=== PATIENT | female | born 2000 | race Caucasian/White ===

== ENCOUNTER 2023-09-15 10:57 | Day surgery (SDC) | payer BC ==
[~2023-09-15] VITALS: Ht 162.6 cm; Wt 72.6 kg
[~2023-09-15 10:57] MED LIST: OMEPRAZOLE DR40 MG PO
[2023-09-15] MEDS ORDERED: LACTATED RINGER'S 1,000 ML IV ONE (11:01)
[2023-09-15] MEDS ORDERED: FAMOTIDINE 10MG/ML 2ML SDV IV ONE (11:22)
[2023-09-15] MEDS ORDERED: ONDANSETRON HCl 4 MG/2 ML SDV ONE (12:42)
[2023-09-15 12:45] VITALS: BP 112/80
[2023-09-15] MEDS ORDERED: GLYCOPYRROLATE 0.2 MG/ML IV ONE (15:44)
[2023-09-15] MEDS ORDERED: MIDAZOLAM HCL 2 MG/2 ML VIAL IV ONE (15:44)
[2023-09-15] MEDS ORDERED: PROPOFOL 200 MG/20 ML VIAL IV ONE (15:44)
[2023-09-15] MEDS ORDERED: LIDOCAINE HCL 2% 2ML SDV IV ONE (15:44)
== END 2023-09-15 12:55 | disposition home or self-care (01) | DRG 392 ==
LOC: ENDO 10:57 → ORM 11:15 → ENDO 11:50 → ORM 11:50 → ENDO 12:55
PROVIDERS: ATTEND Internal Medicine Gastroenterology
PROC: 0DB98ZX Excision of Duodenum, Via Natural or Artificial Opening Endoscopic, Diagnostic (ICD-10-PCS; principal; 2023-09-15)
PROC: 0DB68ZX Excision of Stomach, Via Natural or Artificial Opening Endoscopic, Diagnostic (ICD-10-PCS; 2023-09-15)
PROC: 0DB48ZX Excision of Esophagogastric Junction, Via Natural or Artificial Opening Endoscopic, Diagnostic (ICD-10-PCS; 2023-09-15)
DX: K21.9 Gastro-esophageal reflux disease without esophagitis (principal); K31.89 Other diseases of stomach and duodenum; F17.200 Nicotine dependence, unspecified, uncomplicated; Z79.899 Other long term (current) drug therapy